=== PATIENT | female | born 1985 | race African-American/Black ===

== ENCOUNTER 2017-05-11 08:14 | Emergency (ER) | payer SELFPAY ==
[2017-05-11 08:19] VITALS: BP 138/82
--- NOTE | 2017-05-11 09:06 | ER Document Report ---
ED GI/ - General Mode of Arrival: Ambulatory Information source: Patient <ELMIRA HDZ - Last Filed: 05/11/17 13:45> <ANG DEJESUS - Last Filed: 05/11/17 16:24> - General Chief Complaint: Abdominal Pain Stated Complaint: ABDOMINAL PAIN Time Seen by Provider: 05/11/17 08:42 Notes: Patient is a 31 year old female that presents to the emergency department today with complaints of abdominal pain for the last four days. Patient states that she has had "problems" with her IUD since it was placed. Patient states she has a Mirena, this is her second one, she had no problems with the first one. Patient states she has had frequent yeast infections with this Mirena and she has had vaginal itching. Patient denies any vomiting or diarrhea. (WILDER ELMIRA) - Related Data Allergies/Adverse Reactions: No Known Allergies Allergy (Verified 05/11/17 09:03) Past Medical History - General Information source: Patient - Social History Smoking Status: Never Smoker Cigarette use (# per day): No Chew tobacco use (# tins/day): No Frequency of alcohol use: Rare Drug Abuse: None Lives with: Family Family History: Reviewed & Not Pertinent Patient has suicidal ideation: No Patient has homicidal ideation: No Psychiatric Medical History: Reports: Hx Depression Past Surgical History: Reports: Hx Abdominal Surgery - hernia repair <ELMIRA HDZ - Last Filed: 05/11/17 13:45> Review of Systems - Review of Systems Constitutional: No symptoms reported EENT: No symptoms reported Cardiovascular: No symptoms reported Respiratory: No symptoms reported Gastrointestinal: See HPI, Abdominal pain. denies: Diarrhea, Vomiting Genitourinary: No symptoms reported Female Genitourinary: See HPI, Other - vaginal itching Musculoskeletal: No symptoms reported Skin: No symptoms reported Hematologic/Lymphatic: No symptoms reported Neurological/Psychological: No symptoms reported -: Yes All other systems reviewed and negative <ELMIRA HDZ - Last Filed: 05/11/17 13:45> Physical Exam - Vital signs Interpretation: Normal - General General appearance: Appears well, Alert - HEENT Head: Normocephalic, Atraumatic Eyes: Normal Pupils: PERRL - Respiratory Respiratory status: No respiratory distress Chest status: Nontender Breath sounds: Normal Chest palpation: Normal - Cardiovascular Rhythm: Regular Heart sounds: Normal auscultation Murmur: No - Abdominal Inspection: Normal Distension: No distension Bowel sounds: Normal Tenderness: Nontender Organomegaly: No organomegaly - Genitourinary External exam: Normal Speculum exam: Vaginal discharge - minimal Vaginal bleeding: None Bimanuel exam: Cervical motion tender - Back Back: Normal, Nontender - Extremities General upper extremity: Normal inspection, Nontender, Normal color, Normal ROM , Normal temperature General lower extremity: Normal inspection, Nontender, Normal color, Normal ROM , Normal temperature, Normal weight bearing. No: Alicja's sign - Neurological Neuro grossly intact: Yes Cognition: Normal Orientation: AAOx4 Mily Coma Scale Eye Opening: Spontaneous [place] Coma Scale Verbal: Oriented Mily Coma Scale Motor: Obeys Commands [place] Coma Scale Total: 15 Speech: Normal Motor strength normal: LUE, RUE, LLE, RLE Sensory: Normal - Psychological Associated symptoms: Normal affect, Normal mood - Skin Skin Temperature: Warm Skin Moisture: Dry Skin Color: Normal <ANG DEJESUS - Last Filed: 05/11/17 16:24> - Vital signs Vitals: Temp Pulse BP Pulse Ox 98.1 F 87 138/82 H 100 05/11/17 08:17 05/11/17 08:17 05/11/17 08:17 05/11/17 08:17 Course <ELMIRA HDZ - Last Filed: 05/11/17 13:45> <ANG DEJESUS - Last Filed: 05/11/17 16:24> - Re-evaluation Re-evalutation: 05/11/17 12:22 Called [facility]BD[facility]. Macdonald states IUD does not need to come out today (ELMIRA HDZ) 05/11/17 Patient with cervical motion tenderness. Patient with vaginal discharge. STD panel sent. Patient has been having increasing pain especially after orgasm. Likely from IUD. Patient is to follow -up with her doctor to get it removed. Patient was started on Rocephin and doxycycline. Patient was called that her gonorrhea, chlamydia, and Trichomonas were negative. She will follow-up with her [facility]. (ANG DEJESUS) - Vital Signs Vital signs: Temp Pulse Resp BP Pulse Ox 98.1 F 87 138/82 H 100 05/11/17 08:17 05/11/17 08:17 05/11/17 08:17 05/11/17 08:17 - Laboratory Laboratory results interpreted by me: 05/11/17 08:55 Urine Protein 30 H Urine Urobilinogen 2.0 H Discharge <ELMIRA HDZ - Last Filed: 05/11/17 13:45> <ANG DEJESUS - Last Filed: 05/11/17 16:24> - Discharge Clinical Impression: Possible PID Pain due to intrauterine contraceptive device (IUD) Qualifiers: Encounter type: initial encounter Qualified Code(s): T83.84XA - Pain due to genitourinary prosthetic devices, implants and grafts, initial encounter Condition: Stable Disposition: HOME, SELF-CARE Instructions: Pelvic Inflammatory Disease ([facility]) Additional Instructions: Please follow-up with your [facility] next week and please discuss having your IUD removed. Please return if you have any further concerns. Prescriptions: Doxycycline Hyclate 100 mg PO BID #28 capsule Fluconazole [Diflucan] 150 mg PO ONCE PRN #1 tablet PRN Reason: Forms: Return to Work Scribe Attestation: 05/11/17 16:24 I personally performed the services described in the documentation, reviewed and edited the documentation which was dictated to the scribe in my presence, and it accurately records my words and actions. (ANG DEJESUS) Scribe Documentation - Scribe Written by Nico:: Nico Ferguson, 05/11/2017 1114 acting as scribe for :: Tania <ELMIRA HDZ - Last Filed: 05/11/17 13:45>
[2017-05-11 09:22] LABS: APPEARANCE,URINE SLIGHTLY-CLOUDY; BILIRUBIN,URINE NEGATIVE (NEGATIVE); GLUCOSE, URINE NEGATIVE (NEGATIVE); KETONES,URINE NEGATIVE (NEGATIVE); LEUKOCYTE ESTERASE,URINE NEGATIVE (NEGATIVE); NITRITE,URINE NEGATIVE (NEGATIVE); PROTEIN,URINE 30 mg/dL (NEGATIVE); URINE SPECIFIC GRAVITY 1.023
[2017-05-11] MEDS ORDERED: ONDANSETRON 4 MG TAB.RAPDIS PO ONE (11:01)
[2017-05-11] MEDS ORDERED: OXYCODONE-ACETAMINOPHEN 5-325 MG TABLET PO ONE (11:01)
[2017-05-11] MEDS ORDERED: DICYCLOMINE HCL 20 MG TABLET PO ONE (11:36)
--- NOTE | 2017-05-11 11:54 | RADIOLOGY REPORT (SQ) ---
EXAM DESCRIPTION: U/S NON OB PEL TV W/DOPPLER COMPLETED DATE/TIME: 05/11/2017 11:36 am REASON FOR STUDY: pelvic pain COMPARISON: None. TECHNIQUE: Dynamic and static grayscale images acquired of the pelvis via transvaginal approach and recorded on PACS. Additional selected color Doppler and spectral images recorded. LIMITATIONS: None. FINDINGS: UTERUS: Contour normal. No mass. ENDOMETRIAL STRIPE: An IUD is present CERVIX: No nabothian cysts. RIGHT OVARY: No abnormal masses. 2.9 x 2.1 x 2.1 cm. RIGHT OVARY DOPPLER: Normal arterial vascular flow without evidence for torsion. LEFT OVARY: No abnormal masses. LEFT OVARY DOPPLER: No abnormal masses. 4.2 x 3 x 2.5 cm. FREE FLUID: None noted. OTHER: No other significant finding. MEASUREMENTS: UTERUS: 9.7 x 5.7 x 5 cm. ENDOMETRIAL STRIPE: 10 mm. RIGHT OVARY: See above. LEFT OVARY: See above. IMPRESSION: Normal study. IUD is present. TECHNICAL DOCUMENTATION: JOB ID: [id number] [email or web address] All Rights Reserved
[2017-05-11] MEDS ORDERED: CEFTRIAXONE INJ 250 MG VIAL IM ONE (12:22)
[2017-05-11] MEDS ORDERED: LIDOCAINE 1% INJ-PF (10 MG/ML) 30 ML SDV INJ ONE (12:22)
[2017-05-11] MEDS ORDERED: IBUPROFEN 800 MG TABLET PO ONE (12:22)
[2017-05-11] MEDS ORDERED: DOXYCYCLINE HYCLATE 100 MG TABLET PO ONE (12:26)
== END 2017-05-11 13:06 | disposition home or self-care (01) ==
LOC: ER 08:14
DX: T83.84XA Pain due to genitourinary prosthetic devices, implants and grafts, initial encounter (principal); Y76.8 Miscellaneous obstetric and gynecological devices associated with adverse incidents, not elsewhere classified
CPT/HCPCS: 99284; 96372; 87210; 81025; 81001; 87491; 87591; 76830; 93976; J3490 ×2; S0119; J0696